=== PATIENT | female | born 1985 | race Two or more races ===

== ENCOUNTER 2017-09-18 02:31 | Emergency (ER) | payer MEDICAID ==
[~2017-09-18] VITALS: Ht 167.6 cm; Wt 88.5 kg
--- NOTE | 2017-09-18 03:49 | NUR ---
Patient discharged to home in stable conditon. Written and verbal after care instructions given. Patient verbalizes understanding of instructions.
== END 2017-09-18 03:51 | disposition home or self-care (01) ==
LOC: ER 02:38
DX: K08.89 Other specified disorders of teeth and supporting structures (principal); F17.200 Nicotine dependence, unspecified, uncomplicated
CPT/HCPCS: 99283; A4663

== ENCOUNTER 2021-06-03 01:04 | Emergency (ER) | payer MEDICAID ==
[~2021-06-03] VITALS: Ht 165.1 cm; Wt 99.8 kg
--- NOTE | 2021-06-03 01:35 | NUR ---
Pt here from home for back pain starting 5 hrs [employer]. Pt. 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
[2021-06-03] MEDS ORDERED: KETOROLAC TROMETHAMINE 30 MG INJ IVP ONE (02:00)
[2021-06-03] MEDS ORDERED: DIAZEPAM 10 MG/2 ML DISP.SYRIN IV ONE (02:00)
[2021-06-03] MEDS ORDERED: KETOROLAC TROMETHAMINE 30 MG INJ ONE (02:11)
[2021-06-03] MEDS ORDERED: DIAZEPAM 5 MG TABLET ONE (02:12)
--- NOTE | 2021-06-03 02:42 | NUR ---
Dr. Mercer at bedside for mse.
[2021-06-03] MEDS ORDERED: DIAZEPAM 2 MG TABLET PO ONE (03:15)
[2021-06-03] MEDS ORDERED: CYCLOBENZAPRINE HCL 10 MG TABLET PO ONE (03:15)
[2021-06-03] MEDS ORDERED: CYCLOBENZAPRINE HCL 10 MG TABLET ONE (04:40)
[2021-06-03] MEDS ORDERED: NAPR-1164 PO (04:55)
[2021-06-03] MEDS ORDERED: CYCL5TAB PO (04:55)
--- NOTE | 2021-06-03 05:11 | NUR ---
Patient discharged to home in stable condition. Written and verbal after care instructions given. Patient verbalizes understanding of instructions. Stressed follow up or return to ER for worsening s/s. Pt out of ER with steady gait, no acute signs of distress, VSS, all belongings taken, IV site discontinued, pt instructed not to drive, will uber home.
[2021-06-03 05:12] VITALS: BP 118/80
== END 2021-06-03 05:12 | disposition home or self-care (01) ==
LOC: ER 01:10
DX: M54.5 Low back pain (principal); F17.210 Nicotine dependence, cigarettes, uncomplicated
CPT/HCPCS: 96374; 99284; J1885; J3360; A4663